=== PATIENT | male | born 1970 | race Caucasian/White ===

== ENCOUNTER 2017-02-14 14:52 | Outpatient (CLI) | payer OTHER ==
--- NOTE | 2017-02-14 20:19 | RAD ---
RIGHT FOOT THREE VIEWS 02/14/17 No bony fracture was seen. There is a very slight irregularity to the terminal tuft of the distal ph alanx of the second digit. In view of the adjacent ulcer, the finding could merely be reactionary or it could be an early finding of osteomyelitis. Further studies are necessary to assess it. The rosemary hadley of the foot showed no acute change. A tiny calcaneal spur was noted elsewhere. IMPRESSION: Subtle irregularity of the terminal tuft of the distal phalanx of the second toe. Further workup in order to rule in or rule out osteomyelitis. Code T POS: HOME
== END 2017-02-14 14:53 | disposition home or self-care (01) ==
LOC: BURRAD 14:52
PROVIDERS: ATTEND Family Medicine
DX: E11.621 Type 2 diabetes mellitus with foot ulcer (principal); L97.519 Non-pressure chronic ulcer of other part of right foot with unspecified severity

== ENCOUNTER 2018-01-01 10:32 | Emergency (ER) | payer SELFPAY ==
[2018-01-01 11:31] LABS: #Basophils 0.2 thou/uL (0.0-0.2); #Eosinphils 0.2 thou/uL (0.0-0.7); #Lymphocytes 3.6 thou/uL (1.20-3.40); #Monocytes 1.3 thou/uL (0.11-0.59); #Neutrophils 6.3 thou/uL (1.40-6.50); %Basophils 1.5 % (0.0-1.0); %Lymphocytes 31.3 % (21.0-51.0); %Monocytes 11.3 % (0.0-10.0); Hemoglobin 14.6 g/dL (14.0-18.0); Mean Corpuscular HGB CONC 33.8 g/dL (32.0-36.0); Mean Corpuscular Hemoglobin 26.8 pg (27.0-31.0); Mean Corpuscular Volume 79.2 fL (78.0-98.0); Mean Platelet Volume 7.8 fL (7.4-10.4); Platelet Count 514 thou/uL (130-400); RBC Distribution Width 12.8 % (11.5-14.5); Red Blood Cell (RBC) Count 5.45 mill/uL (4.70-6.10); White Blood Cell (WBC) Count 11.6 thou/uL (4.8-10.8)
[2018-01-01 11:39] LABS: INR-International Normal Ratio 0.9; PTT 32.6 SEC (22.9-36.1); Prothrombin Time 12.5 SEC (12.0-14.7)
[2018-01-01 11:46] LABS: ALT (SGPT) 15 U/L (8-55); AST (SGOT) 14 U/L (5-34); Albumin 4.4 g/dL (3.5-5.0); Alkaline Phosphatase 71 U/L (40-150); Anion Gap 17 mmol/L (10-20); BUN (Urea Nitrogen) 17 mg/dL (8.9-20.6); Bilirubin, Total 0.5 mg/dL (0.2-1.2); Calc. Creatinine Clearance 0 mL/min (70-130); Calcium 10.1 mg/dL (7.8-10.44); Carbon Dioxide 20 mmol/L (22-29); Chloride 106 mmol/L (98-107); Estimated GFR-MDRD 59; Glucose 198 mg/dL (70-105); Potassium 4.4 mmol/L (3.5-5.1); Protein, Total 8.4 g/dL (6.0-8.3); Sodium 139 mmol/L (136-145)
== END 2018-01-01 12:45 | disposition home or self-care (01) ==
LOC: BURERS 10:32
DX: M96.831 Postprocedural hemorrhage of a musculoskeletal structure following other procedure (principal); E11.9 Type 2 diabetes mellitus without complications; E78.5 Hyperlipidemia, unspecified; I10 Essential (primary) hypertension
CPT/HCPCS: 80053; 85025; 85610; 85730; 96360

== ENCOUNTER 2021-05-18 08:24 | Outpatient (CLI) | payer OTHER ==
[2021-05-18 09:01] LABS: #Basophils 0.1 thou/uL (0.0-0.2); #Eosinphils 0.2 thou/uL (0.0-0.7); #Lymphocytes 3.4 thou/uL (1.20-3.40); #Monocytes 0.9 thou/uL (0.11-0.59); #Neutrophils 6.7 thou/uL (1.40-6.50); %Basophils 1.2 % (0.0-1.0); %Eosinophils 1.8 % (0.0-10.0); %Lymphocytes 30.3 % (21.0-51.0); %Monocytes 7.5 % (0.0-10.0); %Neutrophils 59.1 % (42.0-75.0); Hemoglobin 17.6 g/dL (14.0-18.0); Mean Corpuscular HGB CONC 34.2 g/dL (32.0-36.0); Mean Corpuscular Hemoglobin 30.2 pg (27.0-31.0); Mean Corpuscular Volume 88.2 fL (78.0-98.0); Mean Platelet Volume 10.2 fL (7.4-10.4); Platelet Count 342 thou/uL (130-400); RBC Distribution Width 12.7 % (11.5-14.5); Red Blood Cell (RBC) Count 5.85 mill/uL (4.70-6.10); White Blood Cell (WBC) Count 11.3 thou/uL (4.8-10.8)
[2021-05-18 09:18] LABS: ALT (SGPT) 28 U/L (8-55); AST (SGOT) 21 U/L (5-34); Albumin 4.4 g/dL (3.5-5.0); Alkaline Phosphatase 77 U/L (40-110); Anion Gap 19 mmol/L (10-20); BUN (Urea Nitrogen) 17 mg/dL (8.4-25.7); Bilirubin, Total 0.4 mg/dL (0.2-1.2); Calc. Creatinine Clearance 0 mL/min (70-130); Calcium 10.5 mg/dL (7.8-10.44); Carbon Dioxide 26 mmol/L (22-29); Cardiac Risk 6.5 (Less than 4.5); Chloride 95 mmol/L (98-107); Cholesterol 253 mg/dl (< 200 Desired); Globulin 3.1 g/dL (2.4-3.5); Glucose 445 mg/dL (70-105); HDL Cholesterol 39 mg/dL (>60 Neg Risk); Potassium 4.2 mmol/L (3.5-5.1); Protein, Total 7.5 g/dL (6.0-8.3); Sodium 136 mmol/L (136-145); Triglycerides 618 mg/dL (Less than 150)
[2021-05-18 09:33] LABS: Thyroid Stimulating Hormone 1.5037 uIU/mL (0.35-4.94)
[2021-05-18 11:15] LABS: Hemoglobin A1c 11.6 % (4.0-6.0)
[2021-05-18 11:56] LABS: PSA-Asymptomatic (SCREENING) 0.3 ng/mL (0-4.0)
[2021-05-18 12:09] LABS: Creatinine, Urine 48.78 mg/dL (63-166); Microalbumin Urine 16.5 mg/dL (0.5-50.0); Microalbumin/Creat Ratio 338.3 mg/g (Less than 30)
== END 2021-05-18 08:25 | disposition home or self-care (01) ==
LOC: BURLAB 08:24
PROVIDERS: ATTEND Family Medicine
DX: Z12.5 Encounter for screening for malignant neoplasm of prostate (principal); E11.42 Type 2 diabetes mellitus with diabetic polyneuropathy; I10 Essential (primary) hypertension; E78.5 Hyperlipidemia, unspecified
CPT/HCPCS: 36415; 80053; 80061; 82043; 83036; 84443; 85025; G0103